=== PATIENT | male | born 1930 | race Caucasian/White ===

== ENCOUNTER 2018-06-28 01:46 | Outpatient (CLI) | payer MEDICARE | END 2018-06-28 23:59 | disposition home or self-care (01) | LOC: DIABETIC 01:46 | PROVIDERS: ATTEND Internal Medicine Endocrinology, Diabetes & Metabolism | DX: Z71.3 Dietary counseling and surveillance (principal); E11.9 Type 2 diabetes mellitus without complications | CPT/HCPCS: G0108 ==

== ENCOUNTER 2018-08-27 02:20 | Outpatient (CLI) | payer MEDICARE ==
[~2018-08-27 02:20] MED LIST: ALFU10TA PO; ASPI-1071 PO; ATRIN INH; CARV6.253 PO; DIGO125T97 PO; FERR324T4 PO; FURO-150 PO; GLIP10TA11 PO; INSU100V11 SQ; LEVO50TA8 PO; MELA5CAP PO; MIRT15TA PO; PIOG45TA65 PO; POTA20TA19 PO; VALS40TA2 PO
== END 2018-08-27 23:59 | disposition home or self-care (01) ==
LOC: DIABETIC 02:20
PROVIDERS: ATTEND Internal Medicine Endocrinology, Diabetes & Metabolism
DX: E11.9 Type 2 diabetes mellitus without complications (principal)
CPT/HCPCS: G0108

== ENCOUNTER 2018-10-09 05:55 | Day surgery (SDC) | payer MEDICARE ==
[2018-10-09] VITALS (8 sets, daily range): BP systolic 93–120; BP diastolic 43–55
[~2018-10-09] VITALS: Ht 167.6 cm; Wt 70.3 kg
[2018-10-09] MEDS ORDERED: normal saline 1,000 ML IV SCH (06:20)
[2018-10-09] MEDS ORDERED: diphenhydrAMINE 25mg capsule PO PRN (06:20)
[2018-10-09 06:42] LABS: BASOPHILS % (AUTO) 0.5 % (0-1); EOSINOPHILS # (AUTO) 0.5 X10'3 (0-0.9); EOSINOPHILS % (AUTO) 6.9 % (0-6); HEMATOCRIT 36.5 % (42.0-52.0); HEMOGLOBIN 12.3 g/dl (14.0-17.9); LYMPHOCYTES # (AUTO) 1.3 X10'3 (1.1-4.8); LYMPHOCYTES % (AUTO) 19.4 % (21-51); MEAN CORPUSCULAR HEMOGLOBIN 30.8 PG (27.0-31.0); MEAN CORPUSCULAR HGB CONC 33.6 g/dL (33.0-36.5); MEAN CORPUSCULAR VOLUME 91.6 FL (78-98); MEAN PLATELET VOLUME 6.3 FL (7.4-10.4); MONOCYTES # (AUTO) 0.7 X10'3 (0-0.9); MONOCYTES % (AUTO) 10.2 % (2-12); NEUTROPHILS # (AUTO) 4.4 X10'3 (1.8-7.7); PLATELET COUNT 245 X10'3 (140-440); RED BLOOD COUNT 3.98 X10'6 (4.70-6.10); RED CELL DISTRIBUTION WIDTH 15.1 % (11.5-14.5); WHITE BLOOD COUNT 6.9 X10'3 (4.5-11.0)
[2018-10-09 06:51] LABS: ALBUMIN 3.5 G/DL (3.4-5.0); ANION GAP 10 (8-16); BLOOD UREA NITROGEN 25 MG/DL (7-18); BUN/CREATININE RATIO 14.2 (5.4-32.0); CHLORIDE 99 MMOL/L (99-107); CREATININE 1.76 MG/DL (0.60-1.10); GLUCOSE 140 MG/DL (70-104); POTASSIUM 4.7 MMOL/L (3.5-5.1); SODIUM 133 MMOL/L (135-145); TOTAL CARBON DIOXIDE 24.5 MMOL/L (24-32); eGFR 37 ML/MIN
[2018-10-09] MEDS ORDERED: MAGN400C PO (06:55)
[2018-10-09] MEDS ORDERED: BUSP10TA11 PO (06:55)
[2018-10-09] MEDS ORDERED: ATRNS (06:55)
[2018-10-09] MEDS ORDERED: OFLO5DRO LEFTEYE (06:57)
[2018-10-09] MEDS ORDERED: CLIN300C70 PO (06:57)
[2018-10-09] MEDS ORDERED: LIDOcaine 1% W/epiNEPHrine 1:100,000 20ml vial ONE (07:40)
[2018-10-09] MEDS ORDERED: midazolam 2 mg/2 ml injection ONE ×2 (07:40→08:16)
[2018-10-09] MEDS ORDERED: fentaNYL/PF 50MCG/1 ML 2ML syringe ONE (07:40)
[2018-10-09] MEDS ORDERED: vancomycin 1,000mg inj ONE ×2 (07:41)
== END 2018-10-09 10:45 | disposition home or self-care (01) ==
LOC: SSTAY O 05:55
PROVIDERS: ATTEND Internal Medicine Cardiovascular Disease
DX: T82.7XXA Infection and inflammatory reaction due to other cardiac and vascular devices, implants and grafts, initial encounter (principal); I42.0 Dilated cardiomyopathy; I44.7 Left bundle-branch block, unspecified; I25.10 Atherosclerotic heart disease of native coronary artery without angina pectoris; Z95.1 Presence of aortocoronary bypass graft; I10 Essential (primary) hypertension; E78.5 Hyperlipidemia, unspecified; E03.9 Hypothyroidism, unspecified; J44.9 Chronic obstructive pulmonary disease, unspecified; E11.9 Type 2 diabetes mellitus without complications; N40.0 Benign prostatic hyperplasia without lower urinary tract symptoms; Z79.899 Other long term (current) drug therapy; Z79.82 Long term (current) use of aspirin; Z79.4 Long term (current) use of insulin; Z72.89 Other problems related to lifestyle; Z88.5 Allergy status to narcotic agent; Z88.0 Allergy status to penicillin; Z88.8 Allergy status to other drugs, medicaments and biological substances; Z88.2 Allergy status to sulfonamides; Z91.041 Radiographic dye allergy status; Y83.8 Other surgical procedures as the cause of abnormal reaction of the patient, or of later complication, without mention of misadventure at the time of the procedure; Y92.89 Other specified places as the place of occurrence of the external cause
CPT/HCPCS: 33223; 36415; 80048; 82948; 83735; 85025; 85610; 87070; 87075; 93005; 99152; 99153; J2250; J3010; J3370; J7030; J7040; 33222; A4620

== ENCOUNTER 2018-10-13 08:38 | Emergency (ER) | payer MEDICARE ==
[~2018-10-13] VITALS: Ht 170.2 cm; Wt 71.4 kg
[~2018-10-13 08:38] MED LIST changes: +ATRNS; +BUSP10TA11 PO; +CLIN300C70 PO; +MAGN400C PO; +OFLO5DRO LEFTEYE
--- NOTE | 2018-10-13 09:20 | NUR ---
pt is resting quietly on gurney, dressing to left upper chest is dry and intact, no bleeding, reinforced dressing with tagaderm, guaze has small amount of blood on it
[2018-10-13 09:29] VITALS: BP 113/55
== END 2018-10-13 09:30 | disposition home or self-care (01) ==
LOC: ER 08:40
DX: T81.89XA Other complications of procedures, not elsewhere classified, initial encounter (principal); Z88.0 Allergy status to penicillin; Z88.2 Allergy status to sulfonamides; Z88.5 Allergy status to narcotic agent; Z88.6 Allergy status to analgesic agent; Z79.82 Long term (current) use of aspirin; Z79.899 Other long term (current) drug therapy; Y84.0 Cardiac catheterization as the cause of abnormal reaction of the patient, or of later complication, without mention of misadventure at the time of the procedure; Y92.89 Other specified places as the place of occurrence of the external cause
CPT/HCPCS: 99283

== ENCOUNTER 2018-11-27 04:29 | Outpatient (CLI) | payer MEDICARE | END 2018-11-27 23:59 | disposition home or self-care (01) | LOC: DIABETIC 04:29 | PROVIDERS: ATTEND Family Medicine | DX: E11.69 Type 2 diabetes mellitus with other specified complication (principal) | CPT/HCPCS: G0108 ==

== ENCOUNTER 2019-02-28 01:38 | Outpatient (CLI) | payer MEDICARE | END 2019-02-28 23:59 | disposition home or self-care (01) | LOC: DIABETIC 01:38 | PROVIDERS: ATTEND Internal Medicine Endocrinology, Diabetes & Metabolism | DX: E11.65 Type 2 diabetes mellitus with hyperglycemia (principal); Z79.4 Long term (current) use of insulin | CPT/HCPCS: G0108 ==

== ENCOUNTER 2019-03-26 21:34 | Inpatient (IN) | payer MEDICARE ==
[~2019-03-26] VITALS: Ht 167.6 cm; Wt 74.4 kg
[2019-03-26 21:58] LABS: BASOPHILS # (AUTO) 0.1 X10'3 (0-0.2); BASOPHILS % (AUTO) 0.7 % (0-1); EOSINOPHILS # (AUTO) 0.5 X10'3 (0-0.9); EOSINOPHILS % (AUTO) 6.2 % (0-6); HEMATOCRIT 35.1 % (42.0-52.0); HEMOGLOBIN 12.1 g/dl (14.0-17.9); LYMPHOCYTES # (AUTO) 2.1 X10'3 (1.1-4.8); LYMPHOCYTES % (AUTO) 27.6 % (21-51); MEAN CORPUSCULAR HEMOGLOBIN 31.8 PG (27.0-31.0); MEAN CORPUSCULAR HGB CONC 34.5 g/dL (33.0-36.5); MEAN PLATELET VOLUME 6.6 FL (7.4-10.4); MONOCYTES # (AUTO) 0.8 X10'3 (0-0.9); MONOCYTES % (AUTO) 10.4 % (2-12); NEUTROPHILS # (AUTO) 4.3 X10'3 (1.8-7.7); NEUTROPHILS % (AUTO) 55.1 % (42-75); PLATELET COUNT 184 X10'3 (140-440); RED BLOOD COUNT 3.81 X10'6 (4.70-6.10); RED CELL DISTRIBUTION WIDTH 14.7 % (11.5-14.5); WHITE BLOOD COUNT 7.8 X10'3 (4.5-11.0)
[2019-03-26 22:12] LABS: ALANINE AMINOTRANSFERASE 16 U/L (12-78); ALBUMIN 3.6 G/DL (3.4-5.0); ALBUMIN/GLOBULIN RATIO 1.3 (1.1-1.5); ALKALINE PHOSPHATASE 48 IU/L (46-116); ANION GAP 9 (8-16); ASPARTATE AMINO TRANSFERASE 15 U/L (10-37); BILIRUBIN,TOTAL 0.5 MG/DL (0.1-1.0); BLOOD UREA NITROGEN 39 MG/DL (7-18); BUN/CREATININE RATIO 20.7 (5.4-32.0); CALCIUM 9.1 MG/DL (8.5-10.1); CHLORIDE 101 MMOL/L (99-107); CREATININE 1.88 MG/DL (0.60-1.10); GLUCOSE 198 MG/DL (70-104); POTASSIUM 4.4 MMOL/L (3.5-5.1); SODIUM 137 MMOL/L (135-145); TOTAL CARBON DIOXIDE 27.4 MMOL/L (24-32); TOTAL PROTEIN 6.4 G/DL (6.4-8.2); eGFR 34 ML/MIN
[2019-03-26] MEDS ORDERED: nitroGLYCERIN-Tridil 50MG/D5W 250 ML IV PRN (23:02)
[2019-03-26] MEDS ORDERED: normal saline 1000ML IV soln IVB ONE (23:05)
[2019-03-26] MEDS ORDERED: aspirin 81mg tab.chew PO ONE (23:05)
[2019-03-26] MEDS ORDERED: heparin 25,000 UNIT/250ml bag 250 ML IV SCH (23:21)
[2019-03-26] MEDS ORDERED: heparin 10,000 units/1 ML INJ IV ONE ×3 (23:25)
[2019-03-27] MEDS ORDERED: potassium CL 10mEq/100ml bag 100 ML IV PRN ×2 (00:55)
[2019-03-27] MEDS ORDERED: magnesium 4gm in 100ml NS 100 ML IV PRN (00:55)
[2019-03-27] MEDS ORDERED: ondansetron/PF 4mg/2ml inj IV PRN (00:55)
[2019-03-27] MEDS ORDERED: heparin 10,000 units/1 ML INJ IV PRN (00:55)
[2019-03-27] MEDS ORDERED: insulin Lispro (HumaLOG) vial - multi-dose SQ SCH (00:55)
[2019-03-27] MEDS ORDERED: dextrose 50%-water 50ml dispensing syringe IV PRN ×2 (00:55)
[2019-03-27] MEDS ORDERED: dextrose ORAL solution 15 GM/59 ML bottle PO PRN ×2 (00:55)
[2019-03-27] MEDS ORDERED: MESSAGE TO PHARMACY PO ONE (00:55)
[2019-03-27] MEDS ORDERED: glucagon, human recombinant 1mg kit SUBCUT PRN (00:55)
[2019-03-27] MEDS ORDERED: morphine 2 MG/ML inj. syringe IV PRN ×2 (00:55)
[2019-03-27] MEDS ORDERED: heparin 10,000 units/1 ML INJ IV ONE (00:55)
[2019-03-27] MEDS ORDERED: mag hydrox/Alum hydrox/simeth 30ml oral suspension PO PRN (00:55)
[2019-03-27] MEDS ORDERED: potassium Cl 20 mEq SR tablet PO PRN ×2 (00:55)
[2019-03-27] MEDS ORDERED: magnesium 2GM in 50ml NS 50 ML IV PRN (00:55)
[2019-03-27 01:02] LABS: PARTIAL THROMBOPLASTIN TIME 31 SECONDS (22-32)
[2019-03-27] MEDS ORDERED: carVEDilol 3.125mg tablet PO SCH (02:15)
[2019-03-27] MEDS ORDERED: carVEDilol 3.125mg tablet PO ONE (02:15)
[2019-03-27 03:35] VITALS: BP 95/58
--- NOTE | 2019-03-27 05:38 | NUR ---
PAGER ID: [phone] MESSAGE: Otoniel Reyna M, RM 309 admitted for NSTEMI, has AICD, on Heparin and Nitro drip. His troponins are increasing. 0.22, 0.33, and the last one at 414 has been 0.37. Favio QUIROGA Unit 8263 Addendum: 03/27/19 at 0556 by Hair Mayorga RN Dr. Tinoco called back. He acknowledged the elevated troponin. No orders were given at this time.
[2019-03-27 06:00] VITALS: BP 109/53
--- NOTE | 2019-03-27 06:15 | NUR ---
Patient in room MED 309. I have received report from PRAVEEN Arndt and had the opportunity to ask questions and assume patient care.
--- NOTE | 2019-03-27 06:50 | NUR ---
Problems reprioritized. Patient report given to Savannah, questions answered & plan of care reviewed with .
[2019-03-27] MEDS: K and/or MAG REPLACEMENT MC SCH ×2 (08:00→20:00)
[2019-03-27] MEDS: atorvastatin 20mg tablet PO SCH (08:00)
--- NOTE | 2019-03-27 08:30 | NUR ---
PAGER ID: [phone] MESSAGE: Dr. Gonsalez- [facility] REC needs to completed on [place], K. in 309 on ACCE. Thank you, Maya Spears. ACCE 8543
[2019-03-27 10:00] VITALS: BP 113/61
--- NOTE | 2019-03-27 10:56 | NUR ---
PAGER ID: [phone] MESSAGE: Dr. Gonsalez- patient in 309 on ACCE, Ideal, Trop came back at 0.73. Please advise. Thank you, Geoffrey Spears [phone]
--- NOTE | 2019-03-27 11:03 | NUR ---
Sent page to [employer] for 6 hour EKG that is due. Addendum: 03/27/19 at 1700 by Tory Chung RN This order was for a 12 hour EKG.
[2019-03-27] MEDS ORDERED: heparin 25,000 UNIT/250ml bag 250 ML IV SCH (12:00)
--- NOTE | 2019-03-27 14:45 | NUR ---
DM consult, Hgb A1c is 7.2%. Patient given written DM education handout with verbal review and referral to outpatient DM education class on Monday. Reports no chewing or swallowing difficulty, no GI complaints, no reported allergies. Will follow. Addendum: 03/27/19 at [address] Amended: Links added.
[2019-03-27 15:00] VITALS: BP 103/48
--- NOTE | 2019-03-27 16:59 | NUR ---
PAGER ID: [phone] MESSAGE: Dr. Gonsalez-The med rec for ACCE patient Victor Manuel Reyna. is not done. Please complete as this patient has not had medications today. The portion for the nurse to complete is completed. Thank you for your help with this. Geoffrey Spears ACCE 0413
[2019-03-27] MEDS ORDERED: ipratropium 0.5 MG/2.5ML nebule IH PRN (18:00)
--- NOTE | 2019-03-27 18:15 | NUR ---
Patient in room MED 309. I have received report from PRAVEEN Arndt and had the opportunity to ask questions and assume patient care. Addendum: 03/27/19 at 1845 by Tory Chung RN Problems reprioritized. Patient report given, questions answered & plan of care reviewed with PRAVEEN Arndt.
--- NOTE | 2019-03-27 18:36 | NUR ---
PAGER ID: [phone] MESSAGE: Otoniel Reyna 88 M with chest pain with hx of CABG and AICD. Read you note regarding discontinuing Heparin and Tridil drip. Do you want us to officially discontinue the drips. Favio ACCE 8263 Addendum: 03/27/19 at 1843 by Hair Mayorga RN Dr. Rodriguez called back and ordered to discontinue the Heparin drip and decrease the rate of Tridil from 3 mls/hr to 1.5 mls/hr. And if the patient tolerated it well and no chest pain, Then discontinue the tridil as well. No other orders were given at this time.
[2019-03-27] MEDS ORDERED: nitroGLYCERIN 0.4mg SUBLingual tab SL PRN (18:40)
[2019-03-27] MEDS ORDERED: Melatonin 3mg tablet PO SCH (21:00)
[2019-03-27] MEDS ORDERED: tamsulosin 0.4mg capsule PO SCH (21:00)
[2019-03-27] MEDS ORDERED: insulin glargine (Lantus) pen - multi-dose SQ SCH (21:00)
[2019-03-27] MEDS ORDERED: mirtazapine 15mg tablet PO SCH (21:00)
[2019-03-27] MEDS: potassium Cl 20 mEq SR tablet PO SCH (21:14)
[2019-03-27] MEDS: busPIRone 5mg tablet PO SCH (21:15)
[2019-03-27] MEDS: carVEDilol 3.125mg tablet PO SCH (21:15)
[2019-03-27] MEDS: ciprofloxacin 0.3% 2.5ml ophthalmic solution LEFTEYE SCH ×2 (21:16→23:58)
--- NOTE | 2019-03-27 21:30 | NUR ---
Nitroglycerin stop per Dr. Price "Dr. Mcdaniels". Patient denies any chest pain.
--- NOTE | 2019-03-27 21:42 | NUR ---
Patient in room MED 309. I have received report from Hair MORTON and had the opportunity to ask questions and assume patient care.
[2019-03-27 22:10] VITALS: BP 123/44
--- NOTE | 2019-03-27 22:11 | NUR ---
Gave report to Jerod. Patient transferred to PCU room 23B. Patient alert, oriented x4. Not on any distress. Not complaining of chest pain.
--- NOTE | 2019-03-27 22:23 | NUR ---
Patient arrived to the floor at 2210 from [facility] via gurney. Skin check complete. VSS. Oriented to vital signs times, meal times, medication times, and unit policies.
--- NOTE | 2019-03-27 22:26 | NUR ---
I agree with the findings documented in the physical assessment by Hair MORTON.
[2019-03-27] MEDS ORDERED: nitroGLYCERIN-Tridil 50MG/D5W 250 ML IV PRN (23:02)
[2019-03-28 02:00] VITALS: BP 105/44
[2019-03-28] MEDS: ciprofloxacin 0.3% 2.5ml ophthalmic solution LEFTEYE SCH ×3 (03:16→12:00)
[2019-03-28 05:34] LABS: BASOPHILS # (AUTO) 0.1 X10'3 (0-0.2); BASOPHILS % (AUTO) 0.7 % (0-1); EOSINOPHILS # (AUTO) 0.5 X10'3 (0-0.9); EOSINOPHILS % (AUTO) 5.8 % (0-6); HEMATOCRIT 33.2 % (42.0-52.0); HEMOGLOBIN 11.4 g/dl (14.0-17.9); LYMPHOCYTES # (AUTO) 1.7 X10'3 (1.1-4.8); LYMPHOCYTES % (AUTO) 19.9 % (21-51); MEAN CORPUSCULAR HEMOGLOBIN 31.6 PG (27.0-31.0); MEAN CORPUSCULAR HGB CONC 34.3 g/dL (33.0-36.5); MEAN CORPUSCULAR VOLUME 92.1 FL (78-98); MEAN PLATELET VOLUME 6.9 FL (7.4-10.4); MONOCYTES % (AUTO) 12.1 % (2-12); NEUTROPHILS # (AUTO) 5.2 X10'3 (1.8-7.7); NEUTROPHILS % (AUTO) 61.5 % (42-75); PLATELET COUNT 173 X10'3 (140-440); RED BLOOD COUNT 3.61 X10'6 (4.70-6.10); RED CELL DISTRIBUTION WIDTH 14.8 % (11.5-14.5); WHITE BLOOD COUNT 8.4 X10'3 (4.5-11.0)
[2019-03-28 05:47] LABS: ALANINE AMINOTRANSFERASE 18 U/L (12-78); ALBUMIN 3.1 G/DL (3.4-5.0); ALBUMIN/GLOBULIN RATIO 1.1 (1.1-1.5); ALKALINE PHOSPHATASE 47 IU/L (46-116); ANION GAP 4 (8-16); ASPARTATE AMINO TRANSFERASE 34 U/L (10-37); BILIRUBIN,TOTAL 0.4 MG/DL (0.1-1.0); BLOOD UREA NITROGEN 30 MG/DL (7-18); BUN/CREATININE RATIO 20.4 (5.4-32.0); CALCIUM 8.3 MG/DL (8.5-10.1); CHLORIDE 107 MMOL/L (99-107); CHOL/HDL RATIO 4.2 (0.00-4.99); CHOLESTEROL 122 MG/DL (0-200); CREATININE 1.47 MG/DL (0.60-1.10); GLUCOSE 123 MG/DL (70-104); HDL CHOLESTEROL 29 MG/DL (35-60); LDL CHOLESTEROL 73 MG/DL (50-100); MAGNESIUM 1.9 MG/DL (1.5-2.4); POTASSIUM 4.1 MMOL/L (3.5-5.1); SODIUM 139 MMOL/L (135-145); TOTAL CARBON DIOXIDE 27.7 MMOL/L (24-32); TOTAL PROTEIN 5.8 G/DL (6.4-8.2); TRIGLYCERIDES 109 MG/DL (20-135); eGFR 45 ML/MIN
[2019-03-28 06:00] VITALS: BP 111/50
--- NOTE | 2019-03-28 06:16 | NUR ---
Patient in room PCU 3023. I have received report from PRAVEEN Blanc and had the opportunity to ask questions and assume patient care.
--- NOTE | 2019-03-28 06:21 | NUR ---
Problems reprioritized. Patient report given, questions answered & plan of care reviewed with Devyn MORTON.
[2019-03-28] MEDS: K and/or MAG REPLACEMENT MC SCH (07:03)
[2019-03-28] MEDS ORDERED: digoxin 125mcg (0.125mg) tablet PO SCH (08:00)
[2019-03-28] MEDS ORDERED: pioglitazone 45mg tablet PO SCH (08:00)
[2019-03-28] MEDS: potassium Cl 20 mEq SR tablet PO SCH (08:00)
[2019-03-28] MEDS ORDERED: aspirin 81mg tablet.DR PO SCH ×2 (08:00→08:30)
[2019-03-28] MEDS ORDERED: levoTHYROXINE 25mcg tablet PO SCH (08:00)
[2019-03-28] MEDS: busPIRone 5mg tablet PO SCH (08:40)
[2019-03-28] MEDS: atorvastatin 20mg tablet PO SCH (08:40)
[2019-03-28] MEDS: carVEDilol 3.125mg tablet PO SCH (08:40)
[2019-03-28] MEDS ORDERED: ATOR20TA66 PO (10:33)
--- NOTE | 2019-03-28 13:05 | NUR ---
Patient discharged. Stable per Dr Price for DC. Educated on NSTEMI, DM survival skills, meds and follow-up appointments. VSS. Medicare DC rights and discharge paper signed. Family members came up and patient was wheeled down by staff. Patient took all belongings with him. Meds were called into [facility] by PRAVEEN Velazco.
--- NOTE | 2019-03-29 13:57 | NUR ---
Case management DC follow up: LM/VM for questions/concerns, post DC status
== END 2019-03-28 13:05 | disposition home or self-care (01) | DRG 281 ==
LOC: ER 21:35 → ED HOLD 03-27 00:55 → MED 3N 03-27 02:30 → PCU 3S 03-27 21:55
PROVIDERS: ADMIT Family Medicine; ATTEND Family Medicine
DX: I21.4 Non-ST elevation (NSTEMI) myocardial infarction (principal); I42.0 Dilated cardiomyopathy; I50.22 Chronic systolic (congestive) heart failure; I13.0 Hypertensive heart and chronic kidney disease with heart failure and stage 1 through stage 4 chronic kidney disease, or unspecified chronic kidney disease; E03.9 Hypothyroidism, unspecified; E11.22 Type 2 diabetes mellitus with diabetic chronic kidney disease; E78.5 Hyperlipidemia, unspecified; N18.9 Chronic kidney disease, unspecified; H54.7 Unspecified visual loss; I25.119 Atherosclerotic heart disease of native coronary artery with unspecified angina pectoris; Z95.810 Presence of automatic (implantable) cardiac defibrillator; Z95.1 Presence of aortocoronary bypass graft; Z87.442 Personal history of urinary calculi; I25.2 Old myocardial infarction; Z79.4 Long term (current) use of insulin; Z79.899 Other long term (current) drug therapy; Z88.0 Allergy status to penicillin; Z88.2 Allergy status to sulfonamides; Z88.8 Allergy status to other drugs, medicaments and biological substances; Z91.041 Radiographic dye allergy status
CPT/HCPCS: 36415; 71045; 80053; 80061; 80162; 82948; 83036; 83735; 84484; 85025; 85730; 87081; 93005; 93306; 96374; 96375; 97161; 97530; 99285; G0378; J1644; J1815; J3490; J7030

== ENCOUNTER 2019-08-14 09:02 | Day surgery (SDC) | payer MEDICARE ==
[~2019-08-14] VITALS: Ht 168.9 cm; Wt 56.4 kg
[~2019-08-14 09:02] MED LIST changes: +ATOR20TA66 PO; -CLIN300C70 PO
[2019-08-14 09:20] VITALS: BP 164/74
[2019-08-14] MEDS ORDERED: ATOR20TA66 PO (09:38)
[2019-08-14] MEDS ORDERED: fentaNYL/PF 50MCG/1 ML 2ML syringe ONE (09:38)
[2019-08-14] MEDS ORDERED: LIDOcaine Viscous 15ml cup ONE (09:38)
[2019-08-14] MEDS ORDERED: MIDAZolam 5mg/5ml vial ONE (09:38)
[2019-08-14] MEDS ORDERED: FURO-150 PO (09:39)
[2019-08-14] MEDS ORDERED: INSU100C10 SQ ×2 (09:44→09:45)
[2019-08-14] MEDS ORDERED: ROSU40TA PO (09:46)
[2019-08-14] MEDS ORDERED: VALS40TA2 PO (09:47)
[2019-08-14] MEDS ORDERED: HYDR-3964 PO (09:48)
[2019-08-14] MEDS ORDERED: ONDA4TAB12 PO (09:52)
[2019-08-14] MEDS ORDERED: DOCU-148 PO (09:52)
[2019-08-14 10:10] VITALS: BP 164/74
[2019-08-14 10:20] VITALS: BP 156/71
[2019-08-14 10:30] VITALS: BP 145/62
[2019-08-14 10:40] VITALS: BP 150/59
== END 2019-08-14 10:50 | disposition home or self-care (01) ==
LOC: GI LAB 09:02
PROVIDERS: ATTEND Internal Medicine
DX: R13.10 Dysphagia, unspecified (principal); K22.8 Other specified diseases of esophagus; K22.2 Esophageal obstruction; K25.9 Gastric ulcer, unspecified as acute or chronic, without hemorrhage or perforation; K31.89 Other diseases of stomach and duodenum; K22.10 Ulcer of esophagus without bleeding; K26.9 Duodenal ulcer, unspecified as acute or chronic, without hemorrhage or perforation; K29.50 Unspecified chronic gastritis without bleeding
CPT/HCPCS: 43239; 99153; G0500; J2250; J3010; J7040; 88108; 88305; 88312; 88342; 99152; A4620

== ENCOUNTER 2019-09-21 07:29 | Inpatient (IN) | payer MEDICARE ==
[~2019-09-21] VITALS: Ht 167.6 cm; Wt 68.3 kg
[~2019-09-21 07:29] MED LIST changes: -ATOR20TA66 PO; +DOCU-148 PO; -GLIP10TA11 PO; +HYDR-3964 PO; +INSU100C10 SQ; -MELA5CAP PO; -MIRT15TA PO; +ONDA4TAB12 PO; +ROSU40TA PO
--- NOTE | 2019-09-21 07:59 | NUR ---
(CALL FIRST) [phone] SONNAILA) [phone] Addendum: 09/21/19 at 0838 by REGINALD PAT
[2019-09-21 08:07] LABS: ALANINE AMINOTRANSFERASE 16 U/L (12-78); ALKALINE PHOSPHATASE 55 IU/L (46-116); ANION GAP 10 (8-16); ASPARTATE AMINO TRANSFERASE 17 U/L (10-37); BILIRUBIN,TOTAL 0.4 MG/DL (0.1-1.0); BLOOD UREA NITROGEN 23 MG/DL (7-18); BUN/CREATININE RATIO 13.9 (5.4-32.0); CALCIUM 8.9 MG/DL (8.5-10.1); CHLORIDE 104 MMOL/L (99-107); CREATININE 1.65 MG/DL (0.60-1.10); GLUCOSE 131 MG/DL (70-104); SODIUM 137 MMOL/L (135-145); TOTAL CARBON DIOXIDE 22.7 MMOL/L (24-32); eGFR 39 ML/MIN
[2019-09-21 08:09] LABS: BASOPHILS % (AUTO) 0.6 % (0-1); EOSINOPHILS # (AUTO) 0.5 X10'3 (0-0.9); EOSINOPHILS % (AUTO) 6.4 % (0-6); HEMOGLOBIN 10.4 g/dl (14.0-17.9); LYMPHOCYTES # (AUTO) 1.6 X10'3 (1.1-4.8); LYMPHOCYTES % (AUTO) 20.7 % (21-51); MEAN CORPUSCULAR HEMOGLOBIN 31.5 PG (27.0-31.0); MEAN CORPUSCULAR HGB CONC 33.4 g/dL (33.0-36.5); MEAN CORPUSCULAR VOLUME 94.3 FL (78-98); MONOCYTES # (AUTO) 0.9 X10'3 (0-0.9); MONOCYTES % (AUTO) 11.7 % (2-12); NEUTROPHILS # (AUTO) 4.6 X10'3 (1.8-7.7); NEUTROPHILS % (AUTO) 60.6 % (42-75); PLATELET COUNT 177 X10'3 (140-440); RED BLOOD COUNT 3.29 X10'6 (4.70-6.10); RED CELL DISTRIBUTION WIDTH 17.1 % (11.5-14.5); WHITE BLOOD COUNT 7.7 X10'3 (4.5-11.0)
[2019-09-21 08:16] LABS: MAGNESIUM 1.8 MG/DL (1.5-2.4)
[2019-09-21] MEDS ORDERED: OMEP40CA13 PO (08:40)
[2019-09-21] MEDS ORDERED: INSU100V2 (08:42)
[2019-09-21] MEDS ORDERED: mag hydrox/Alum hydrox/simeth 30ml oral suspension PO PRN (08:45)
[2019-09-21] MEDS ORDERED: magnesium hydroxide 30ml (MOM) UD suspension PO PRN (08:45)
[2019-09-21] MEDS ORDERED: ondansetron/PF 4mg/2ml inj IV PRN (08:45)
[2019-09-21] MEDS ORDERED: morphine 2 MG/ML inj. syringe IV PRN ×2 (08:45)
[2019-09-21] MEDS ORDERED: furosemide 10 MG/1 ML 10ml inj IV ONE (09:05)
[2019-09-21] MEDS ORDERED: HYDROcodone/acetaminophen 5mg/325mg tablet PO PRN (09:10)
[2019-09-21] MEDS ORDERED: ipratropium 0.5 MG/2.5ML nebule IH PRN (09:25)
[2019-09-21] MEDS ORDERED: glucagon, human recombinant 1mg kit SUBCUT PRN (10:00)
[2019-09-21] MEDS ORDERED: MESSAGE TO PHARMACY PO ONE (10:00)
[2019-09-21] MEDS ORDERED: dextrose ORAL solution 15 GM/59 ML bottle PO PRN ×2 (10:00)
[2019-09-21] MEDS ORDERED: dextrose 50%-water 50ml dispensing syringe IV PRN ×2 (10:00)
[2019-09-21] MEDS ORDERED: insulin Lispro (HumaLOG) vial - multi-dose SQ SCH (10:00)
[2019-09-21 10:15] VITALS: BP 144/53
[2019-09-21] MEDS ORDERED: LORazepam 0.5 MG tablet PO PRN (10:45)
[2019-09-21 11:00] VITALS: BP 148/49
[2019-09-21 11:13] LABS: HEMOGLOBIN A1C 6.7 % (4.5-6.2)
[2019-09-21] MEDS: ferrous sulfate 325mg tablet PO SCH (11:29)
[2019-09-21] MEDS: atorvastatin 20mg tablet PO SCH (11:29)
[2019-09-21] MEDS: losartan 25mg tablet PO SCH (11:30)
--- NOTE | 2019-09-21 13:03 | NUR ---
PAGER ID: [phone] MESSAGE: [id number] Victor Manuel Reyna. Lung scan will be done tomorrow. They say they don't have a dose today but they will tomorrow. Irma [id number]
[2019-09-21] MEDS ORDERED: ofloxacin 0.33% 5ml ophthalmic drops LEFTEYE SCH (14:00)
[2019-09-21 15:00] VITALS: BP 101/42
[2019-09-21] MEDS: ondansetron 4mg rapidly disintigrating tab PO SCH (16:00)
[2019-09-21 18:00] VITALS: BP 108/44
--- NOTE | 2019-09-21 18:28 | NUR ---
Problems reprioritized. Patient report given, questions answered & plan of care reviewed with Ronit MORTON.
[2019-09-21] MEDS: carvedilol 6.25mg tablet PO SCH (19:33)
[2019-09-21] MEDS: magnesium oxide 400mg tablet PO SCH (19:33)
[2019-09-21] MEDS: furosemide 20MG tablet PO SCH (19:33)
[2019-09-21] MEDS: busPIRone 5mg tablet PO SCH (19:33)
[2019-09-21] MEDS: docusate sod 100mg capsule PO SCH (19:34)
[2019-09-21] MEDS: potassium Cl 20 mEq SR tablet PO SCH (19:34)
[2019-09-21] MEDS: heparin, porcine 5000 units/ml vial SQ SCH (19:34)
[2019-09-21 19:37] VITALS: BP 123/44
[2019-09-21] MEDS ORDERED: insulin glargine (Lantus) pen - multi-dose SQ SCH (21:00)
[2019-09-21] MEDS ORDERED: tamsulosin 0.4mg capsule PO SCH (21:00)
[2019-09-21 22:00] VITALS: BP 106/43
[2019-09-22] MEDS: ondansetron 4mg rapidly disintigrating tab PO SCH ×2 (00:12→08:09)
[2019-09-22 02:00] VITALS: BP 114/44
[2019-09-22 05:18] LABS: BASOPHILS # (AUTO) 0.1 X10'3 (0-0.2); EOSINOPHILS # (AUTO) 0.5 X10'3 (0-0.9); EOSINOPHILS % (AUTO) 8.1 % (0-6); HEMATOCRIT 28.6 % (42.0-52.0); HEMOGLOBIN 9.5 g/dl (14.0-17.9); LYMPHOCYTES # (AUTO) 1.4 X10'3 (1.1-4.8); LYMPHOCYTES % (AUTO) 20.6 % (21-51); MEAN CORPUSCULAR HEMOGLOBIN 31.1 PG (27.0-31.0); MEAN CORPUSCULAR HGB CONC 33.1 g/dL (33.0-36.5); MEAN CORPUSCULAR VOLUME 93.8 FL (78-98); MEAN PLATELET VOLUME 6.7 FL (7.4-10.4); MONOCYTES # (AUTO) 0.8 X10'3 (0-0.9); MONOCYTES % (AUTO) 12.7 % (2-12); NEUTROPHILS # (AUTO) 3.8 X10'3 (1.8-7.7); NEUTROPHILS % (AUTO) 57.6 % (42-75); PLATELET COUNT 158 X10'3 (140-440); RED BLOOD COUNT 3.04 X10'6 (4.70-6.10); WHITE BLOOD COUNT 6.6 X10'3 (4.5-11.0)
[2019-09-22 05:41] LABS: ALBUMIN 2.8 G/DL (3.4-5.0); ANION GAP 7 (8-16); BLOOD UREA NITROGEN 26 MG/DL (7-18); BUN/CREATININE RATIO 13.6 (5.4-32.0); CALCIUM 8.5 MG/DL (8.5-10.1); CHLORIDE 103 MMOL/L (99-107); CREATININE 1.91 MG/DL (0.60-1.10); GLUCOSE 142 MG/DL (70-104); SODIUM 135 MMOL/L (135-145); TOTAL CARBON DIOXIDE 25.1 MMOL/L (24-32); eGFR 33 ML/MIN
[2019-09-22 05:54] LABS: POTASSIUM 4.4 MMOL/L (3.5-5.1)
[2019-09-22 06:00] VITALS: BP 138/46
--- NOTE | 2019-09-22 06:33 | NUR ---
Problems reprioritized. Patient report given, questions answered & plan of care reviewed with PRAVEEN Huston .
--- NOTE | 2019-09-22 06:42 | NUR ---
Patient in room PCU 3012. I have received report from Cheryl MORTON and had the opportunity to ask questions and assume patient care.
[2019-09-22] MEDS ORDERED: pantoprazole 40mg Tablet.DR PO SCH (07:30)
[2019-09-22] MEDS ORDERED: aspirin 81mg tablet.DR PO SCH (08:00)
[2019-09-22] MEDS ORDERED: levoTHYROXINE 25mcg tablet PO SCH (08:00)
[2019-09-22] MEDS ORDERED: pioglitazone 45mg tablet PO SCH (08:00)
[2019-09-22] MEDS ORDERED: digoxin 125mcg (0.125mg) tablet PO SCH (08:00)
[2019-09-22] MEDS: busPIRone 5mg tablet PO SCH (08:07)
[2019-09-22] MEDS: potassium Cl 20 mEq SR tablet PO SCH (08:07)
[2019-09-22] MEDS: docusate sod 100mg capsule PO SCH (08:07)
[2019-09-22] MEDS: magnesium oxide 400mg tablet PO SCH (08:08)
[2019-09-22] MEDS: furosemide 20MG tablet PO SCH (08:08)
[2019-09-22] MEDS: carvedilol 6.25mg tablet PO SCH (08:09)
[2019-09-22] MEDS: atorvastatin 20mg tablet PO SCH (08:09)
[2019-09-22] MEDS: losartan 25mg tablet PO SCH (08:09)
[2019-09-22] MEDS: heparin, porcine 5000 units/ml vial SQ SCH (08:11)
[2019-09-22] MEDS: ferrous sulfate 325mg tablet PO SCH (08:14)
[2019-09-22 11:14] VITALS: BP 127/52
--- NOTE | 2019-09-22 14:20 | NUR ---
Discharge Home with family assistance: Instructions are written and Pt[facility]. Saritha is encouraged to share information from the discharge at this [facility] appointment.
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
== END 2019-09-22 14:20 | disposition home health service (06) | DRG 880 ==
LOC: ER 07:30 → ED HOLD 08:45 → EDBEDREQ 09:37 → PCU 3S 09:52
PROVIDERS: ADMIT Family Medicine; ATTEND Family Medicine
DX: F41.9 Anxiety disorder, unspecified (principal); I10 Essential (primary) hypertension; E78.5 Hyperlipidemia, unspecified; R06.02 Shortness of breath; I25.10 Atherosclerotic heart disease of native coronary artery without angina pectoris; E03.9 Hypothyroidism, unspecified; K21.9 Gastro-esophageal reflux disease without esophagitis; E11.65 Type 2 diabetes mellitus with hyperglycemia; Z88.4 Allergy status to anesthetic agent; Z88.2 Allergy status to sulfonamides; Z88.8 Allergy status to other drugs, medicaments and biological substances; Z95.1 Presence of aortocoronary bypass graft; I25.2 Old myocardial infarction; Z95.810 Presence of automatic (implantable) cardiac defibrillator
CPT/HCPCS: 36415; 71045; 78582; 80048; 80053; 82948; 83036; 83735; 83880; 84484; 85025; 87081; 93005; 94760; 99285; A9539; A9540; G0378; J1644; J1815; J1940; J2270